=== PATIENT | female | born 1995 | race Caucasian/White ===

== ENCOUNTER 2017-05-30 20:54 | Emergency (ER) | payer OTHER ==
[~2017-05-30] VITALS: Ht 167.6 cm; Wt 100.0 kg
[2017-05-30] MEDS ORDERED: IBUPROFEN 600 MG TABLET PO ONE (21:30)
[2017-05-30] MEDS ORDERED: ACETAMINOPHEN 500 MG TABLET PO ONE (21:30)
[2017-05-30 22:14] VITALS: BP 127/84
== END 2017-05-30 22:38 | disposition home or self-care (01) ==
LOC: EMS 20:56
DX: R07.89 Other chest pain (principal); J40 Bronchitis, not specified as acute or chronic
CPT/HCPCS: 71020; 81025; 99284

== ENCOUNTER 2017-07-10 17:58 | Emergency (ER) | payer OTHER ==
[~2017-07-10] VITALS: Ht 167.6 cm; Wt 100.0 kg
[2017-07-10 19:38] VITALS: BP 145/87
== END 2017-07-10 19:47 | disposition home or self-care (01) ==
LOC: EMS 17:59
DX: J06.9 Acute upper respiratory infection, unspecified (principal); H66.93 Otitis media, unspecified, bilateral; J02.9 Acute pharyngitis, unspecified; R19.7 Diarrhea, unspecified
CPT/HCPCS: 99283